=== PATIENT | male | born 1960 | race Caucasian/White ===

== ENCOUNTER 2018-02-16 08:58 | Day surgery (SDC) | payer OTHER ==
[2018-02-16] MEDS ORDERED: LIDOCAINE HCL 1%, 10 MG/ML (20ML VIAL) ONE (11:02)
[2018-02-16 12:46] VITALS: BP 119/68; PULSE 73; TEMP 99.2
--- NOTE | 2018-02-16 18:23 | PROC ---
Bone Marrow Aspiration/Biopsy - Consent Risks and Benefits Explained: Yes Consent on Chart: Yes - Procedure Location: Right Iliac Crest Anesthesia: 1% Lidocaine Sterile Technique: Yes Specimen: Obtained Position: Other (left lateral) Patient tolerated procedure: Well with minimal pain Sterile Dressing Applied: Yes Remarks: Indication --mantle cell lymphoma
--- NOTE | 2018-02-16 23:30 | HP ---
Satellite H - Chief Complaint Chief Complaint: 57 y/o patinet with mantle cell lymphoma, here for elective bone marow biopsy. No fever/chills/cough or other symptoms History Source: Patient Limitations to Obtaining History: No Limitations - Past Medical History Allergies/Adverse Reactions: Allergies Allergy/AdvReac Type Severity Reaction Status Date / Time No Known Drug Allergies Allergy Verified 04/30/14 15:04 - Current Medications Current Medications: Home Medications Medication Instructions Recorded Aspirin [ASA -] 81 mg PO DAILY 04/30/14 Cholecalciferol (Vitamin D3) 1,000 unit PO DAILY 04/30/14 [Vitamin D3] Dapagliflozin Propanediol [Farxiga] 5 mg PO DAILY 04/30/14 Fosinopril Sodium 20 mg PO DAILY 04/30/14 Glyburide 5 mg PO BID 04/30/14 Saxagliptin HCl/Metformin HCl 1 tab PO BID 04/30/14 [Kombiglyze Xr 2.5-1,000 mg Tab] Testosterone [Testim] 5 gm TD DAILY 04/30/14 Oxycodone HCl/Acetaminophen 1 - 2 tab PO Q6H #60 tab 05/07/14 [Percocet 5-325 mg Tablet -] Satellite Physical Exam - Physical Examination Vital Signs: Vital Signs Period Temp Pulse Resp BP Sys/Myles Pulse Ox Last 24 Hr 98.1 F-99.2 F 73-79 16-18 119-148/68-82 General Appearance: Well Developed, Alert & Oriented x3 Lung: Clear to auscultation Heart: Regular rate & rhythm, Normal S1, Normal S2 Abdomen: Soft, No tenderness, Normal bowel sounds Extremities: No edema Neurological: Intact Satellite Impression/Plan - Impression/Plan Impression: 57 y/o patient with mantle cell lymphoma here for completing staging work up
--- NOTE | 2018-02-26 18:29 | PATH ---
Surgical Pathology Report Patient Name: TIAN CHAVARRIA Med. Rec. #: [id number] /Age/Gender: 1960 (Age: 57) / M Account: [id number] Location: [facility] MED/SURG Taken: 02/16/2018 Received: 02/16/2018 Reported: 02/26/2018 Physicians: Wendy Lechuga M.D. Specimen(s) Received A: BONE MARROW BIOPSY B: BONE MARROW CLOT C: BONE MARROW ASPIRATION SMEARS D: BONE MARROW BLOOD Clinical History Rule out Mantle cell lymphoma involvement Final Diagnosis A, B, C. BONE MARROW, CORE, CLOT, AND ASPIRATE, BIOPSY: INVOLVEMENT BY MANTLE CELL LYMPHOMA (LIMITED SPECIMEN FOR EVALUATION OF EXTENT). NORMOCELLULAR MARROW (40-50%) WITH TRILINEAGE HEMATOPOIESIS. SUBOPTIMAL ASPIRATE AND PARTICLE CLOT. Comment: Flow cytometric analysis of the bone marrow showed low-level involvement by a CD5+ B-cell lymphoproliferative disorder, consistent with mantle cell lymphoma. They represented approximately 0.9% of WBCs. FISH studies were positive for low-level CCND1-IGH translocation. There is involvement of the bone marrow by mantle cell lymphoma, however extent involvement is difficult to assess due to a small core biopsy and inadequate aspirate and particle clot. A lymphoid aggregate initially identified was no longer present on deeper sectioning for IHC evaluation. Please correlate with clinical and other laboratory findings. This case was sent to Dr. Joe Fam from [facility] [place], [place] ([id number]) the diagnosis above reflects his opinion. C. COMPREHENSIVE FLOW PANEL performed and interpreted at [facility] [place], [place] ([id number]) shows the following: INTERPRETATION: LOW LEVEL INVOLVEMENT BY CD5+ B-CELL LYMPHOPROLIFERATIVE DISORDER. Hematologic FISH report performed and interpreted at [facility] [place], [place] ([id number]) shows the following: INTERPRETATION: Positive for the CCND1/IGH t(11;14) translocation. Correlation with pending cytogenetics ([id number]) is recommended. See [facility] report ([id number], [id number], and [id number]) for additional details. Electronically Signed Latanya Cain M.D. Addendum Reported: 03/01/2018 Addendum Diagnosis CYTOGENETIC KARYOTYPE ANALYSIS performed and interpreted at [facility], [facility] ([id number]) shows the following: RESULTS: 46,XY [20] DIAGNOSITIC INTERPRETATION: Normal Karyotype Within the limits of the cytogenetic methods, the chromosomes had normal G-banding patterns with no evidence of an acquired clonal numerical or structural abnormality. This normal result does not rule out a neoplasm. Subtle rearrangements or the presence of an aberrant clone in a low proportion of cells cannot be ruled out. Correlation with other clinical and hematologic data is suggested. Analysis was performed on cells from an unstimulated tissue culture and a tissue culture that was stimulated with lymphoid mitogens. See [facility] report for additional details ([id number]) Latanya Cain M.D. Gross Description A. Received in formalin, labeled with the patient's name and indicated on the requisition to be bone marrow biopsy, is a 0.4 cm in length x 0.2 cm in diameter fernandez, cylindrical portion of bone with attached blood clot. The specimen is entirely submitted in one cassette, following decalcification. B. Received in formalin, labeled with the patient's name and indicated on the requisition to be bone marrow clot, is a 2.3 x 1.5 x 0.3 cm red-brown blood clot. The specimen is submitted in toto in one cassette. C. Received are 10 bone marrow aspiration smear slides. D. Received are 2 green top tubes and 1 lavender top tube of blood which is sent [facility]. 02/19/2018 saudi02/19/2018
== END 2018-02-16 14:03 | disposition home or self-care (01) ==
LOC: J7W 08:58 → JONCNONCHE 08:58
PROVIDERS: ATTEND Internal Medicine Hematology & Oncology
PROC: 07DR3ZX Extraction of Iliac Bone Marrow, Percutaneous Approach, Diagnostic (ICD-10-PCS; principal; 2018-02-16)
DX: C83.10 Mantle cell lymphoma, unspecified site (principal)
CPT/HCPCS: 88300-TC; 88305-TC; 88311-TC; 88313-TC

== ENCOUNTER 2018-02-26 09:20 | Day surgery (SDC) | payer OTHER ==
[2018-02-22 17:49] VITALS: BMI 27.3
[2018-02-26 10:02] LABS: BASO % 0.6 % (0-2.0); EOS % 5.6 % (0-4.5); HEMATOCRIT 45.6 % (35.4-49); HEMOGLOBIN 15.5 GM/dL (11.7-16.9); MCH 30.9 pg (25.7-33.7); MEAN CELL VOLUME 90.9 fl (80-96); MEAN PLT VOLUME 7.3 fl (7.5-11.1); MONO % 6.4 % (3.8-10.2); NEUT % 55.4 % (42.8-82.8); PLATELET COUNT 143 K/MM3 (134-434); RBC 5.02 M/mm3 (4.00-5.60); RDW 13.6 % (11.9-15.9); WHITE BLOOD COUNT 5.9 K/mm3 (4.0-10.0)
[2018-02-26 10:27] LABS: INR 0.93 (0.82-1.09); PROTHROMBIN TIME (PATIENT) 10.5 SEC (9.7-13.0)
[2018-02-26 10:54] VITALS: TEMP 98.4
[2018-02-26 16:07] VITALS: BP 129/79; PULSE 73
== END 2018-02-26 14:45 | disposition home or self-care (01) ==
LOC: JRADIR 09:20
PROVIDERS: ATTEND Internal Medicine Hematology & Oncology
PROC: 02HV33Z Insertion of Infusion Device into Superior Vena Cava, Percutaneous Approach (ICD-10-PCS; principal; 2018-02-26)
PROC: B518ZZA Fluoroscopy of Superior Vena Cava, Guidance (ICD-10-PCS; 2018-02-26)
DX: C83.10 Mantle cell lymphoma, unspecified site (principal)
CPT/HCPCS: 36561; C1788; 36415; 77001-TC-FY; 85025; 85610

== ENCOUNTER 2018-02-28 07:38 | Day surgery (SDC) | payer OTHER ==
[2018-02-28] MEDS ORDERED: SODIUM CHLORIDE 250 ML IV ONE ×4 (08:00→12:10)
[2018-02-28] MEDS ORDERED: PALONOSETRON HCL 0.25 MG/5 ML VIAL IVPUSH ONE (08:30)
[2018-02-28] MEDS ORDERED: DEXAMETHASONE INJECTION 20 MG, DIPHENHYDRAMINE 50 MG in SODIUM CHLORIDE 100 ML IVPB ONE (08:30)
[2018-02-28] MEDS ORDERED: ACETAMINOPHEN 325 MG TABLET (FP) PO ONE (08:30)
[2018-02-28] MEDS ORDERED: DEXAMETHASONE INJECTION 10 MG in SODIUM CHLORIDE 50 ML IVPB ONE (08:30)
[2018-02-28] MEDS ORDERED: SODIUM CHLORIDE IVPB ONE ×3 (09:00→12:00)
[2018-02-28] MEDS ORDERED: BENDAMUSTINE HCL IVPB ONE ×2 (09:00→12:00)
[2018-02-28] MEDS ORDERED: RITUXIMAB IVPB ONE (09:00)
[2018-02-28] MEDS ORDERED: SODIUM CHLORIDE 500 ML IV ONE ×3 (10:00→23:00)
[2018-02-28] MEDS ORDERED: PORTA CATH FLUSH 10 ML IVPUSH ONE ×2 (11:37→17:15)
[2018-02-28 17:13] VITALS: TEMP 98.2
[2018-02-28 17:16] VITALS: BP 129/89; PULSE 71
== END 2018-02-28 17:12 | disposition home or self-care (01) ==
LOC: JONCCHEMO 07:38 → J7W 08:52 → JONCCHEMO 17:12
PROVIDERS: ATTEND Internal Medicine Hematology & Oncology
DX: Z51.11 Encounter for antineoplastic chemotherapy (principal); C83.10 Mantle cell lymphoma, unspecified site
CPT/HCPCS: 96361; 96367; 96375; 96411; 96413; 96415; 96417; J1100; J2469; J7030; J9034; J9310

== ENCOUNTER 2018-03-01 06:43 | Day surgery (SDC) | payer OTHER ==
[2018-02-27 22:34] LABS: URIC ACID 3.9 mg/dL (2.6-7.2)
[2018-03-01] MEDS ORDERED: SODIUM CHLORIDE 250 ML IV ONE ×2 (08:00→09:10)
[2018-03-01] MEDS ORDERED: DEXAMETHASONE INJECTION 10 MG in SODIUM CHLORIDE 50 ML IVPB ONE (08:30)
[2018-03-01] MEDS ORDERED: DEXAMETHASONE INJECTION 20 MG in SODIUM CHLORIDE 50 ML IVPB ONE (08:30)
[2018-03-01] MEDS ORDERED: BENDAMUSTINE HCL IVPB ONE (09:00)
[2018-03-01] MEDS ORDERED: SODIUM CHLORIDE IVPB ONE (09:00)
[2018-03-01] MEDS ORDERED: PORTA CATH FLUSH 10 ML IVPUSH ONE (09:37)
[2018-03-01 09:38] VITALS: TEMP 97.9
[2018-03-01] MEDS ORDERED: DIPHENHYDRAMINE 25 MG, DEXAMETHASONE INJECTION 20 MG in SODIUM CHLORIDE 100 ML IVPB ONE (11:00)
[2018-03-01 15:29] VITALS: BP 110/72; PULSE 80
== END 2018-03-01 14:15 | disposition home or self-care (01) ==
LOC: JONCCHEMO 06:43 → J7W 08:48 → JONCCHEMO 14:15
PROVIDERS: ATTEND Internal Medicine Hematology & Oncology
DX: Z51.11 Encounter for antineoplastic chemotherapy (principal); C83.10 Mantle cell lymphoma, unspecified site
CPT/HCPCS: 36415; 83615; 84550; 96361; 96367; 96375; 96413; J1100

== ENCOUNTER 2018-03-02 07:34 | Day surgery (SDC) | payer OTHER ==
[2018-03-02] MEDS ORDERED: PEGFILGRASTIM 6 MG/0.6 ML DISP.SYRIN SQ ONE (08:00)
[2018-03-02 17:15] VITALS: BP 120/76; PULSE 77; TEMP 97.9
== END 2018-03-02 11:05 | disposition home or self-care (01) ==
LOC: JONCCHEMO 07:34 → J7W 10:54 → JONCCHEMO 11:05
PROVIDERS: ATTEND Internal Medicine Hematology & Oncology
PROC: 3E013GC Introduction of Other Therapeutic Substance into Subcutaneous Tissue, Percutaneous Approach (ICD-10-PCS; principal; 2018-03-02)
DX: C83.10 Mantle cell lymphoma, unspecified site (principal); Z76.89 Persons encountering health services in other specified circumstances
CPT/HCPCS: 96372; J2505

== ENCOUNTER 2018-03-27 07:34 | Day surgery (SDC) | payer OTHER ==
[2018-03-27] MEDS ORDERED: SODIUM CHLORIDE 500 ML IV ONE (09:00)
[2018-03-27 09:10] LABS: BASO % 1.1 % (0-2.0); EOS % 3.3 % (0-4.5); HEMATOCRIT 44.9 % (35.4-49); HEMOGLOBIN 15.1 GM/dL (11.7-16.9); LYMPH % 11.7 % (8-40); MCH 31.5 pg (25.7-33.7); MCHC 33.6 g/dl (32.0-35.9); MEAN CELL VOLUME 93.7 fl (80-96); MEAN PLT VOLUME 8.2 fl (7.5-11.1); MONO % 8.3 % (3.8-10.2); NEUT % 75.6 % (42.8-82.8); PLATELET COUNT 162 K/MM3 (134-434); RBC 4.79 M/mm3 (4.00-5.60); RDW 15.1 % (11.9-15.9); WHITE BLOOD COUNT 6.5 K/mm3 (4.0-10.0)
[2018-03-27 09:34] LABS: ALBUMIN 3.7 g/dl (3.4-5.0); ALK PHOS 58 U/L (45-117); ANION GAP 9 (8-16); BILIRUBIN,DIRECT 0.3 mg/dL (0.0-0.2); BILIRUBIN,TOTAL 0.4 mg/dL (0.2-1.0); BLOOD UREA NITROGEN 23 mg/dL (7-18); CALCIUM 9.1 mg/dL (8.5-10.1); CHLORIDE 104 mmol/L (98-107); CO2 25 mmol/L (21-32); CREATININE 0.9 mg/dL (0.7-1.3); MAGNESIUM 2.2 mg/dL (1.8-2.4); POTASSIUM 4.6 mmol/L (3.5-5.1); SGOT/AST 16 U/L (15-37); SGPT/ALT 33 U/L (12-78); SODIUM 138 mmol/L (136-145)
[2018-03-27 09:36] LABS: GLUCOSE,RANDOM 349 mg/dL (74-106)
[2018-03-27 09:52] LABS: LDH 162 U/L (87-241); URIC ACID 6.3 mg/dL (2.6-7.2)
[2018-03-27] MEDS ORDERED: PALONOSETRON HCL 0.25 MG/5 ML VIAL IVPUSH ONE (10:00)
[2018-03-27] MEDS ORDERED: DEXAMETHASONE INJECTION 20 MG, DIPHENHYDRAMINE 50 MG in SODIUM CHLORIDE 100 ML IVPB ONE (10:00)
[2018-03-27] MEDS ORDERED: ACETAMINOPHEN 325 MG TABLET (FP) PO ONE (10:00)
[2018-03-27] MEDS ORDERED: RITUXIMAB IVPB ONE (10:30)
[2018-03-27] MEDS ORDERED: SODIUM CHLORIDE IVPB ONE ×2 (10:30→14:00)
[2018-03-27] MEDS ORDERED: SODIUM CHLORIDE 250 ML IV SCH (11:00)
[2018-03-27] MEDS ORDERED: ALLOPURINOL 300 MG TABLET (FP) PO SCH (11:00)
[2018-03-27] MEDS ORDERED: CYCLOPHOSPHAMIDE IVPB ONE (14:00)
[2018-03-27] MEDS ORDERED: DOXORUBICIN HCL IV ONE (14:30)
[2018-03-27] MEDS ORDERED: SODIUM CHLORIDE IV ONE (14:30)
[2018-03-27] MEDS ORDERED: vinCRIStine SULFATE 2 MG in SODIUM CHLORIDE 50 ML IVPB ONE (15:00)
[2018-03-27] MEDS ORDERED: SODIUM CHLORIDE 500 ML IV SCH (15:30)
[2018-03-27] MEDS ORDERED: PORTA CATH FLUSH 10 ML IVPUSH ONE (16:31)
[2018-03-27 16:40] VITALS: TEMP 98.1
[2018-03-27 19:07] VITALS: BP 115/73; PULSE 79
== END 2018-03-27 19:06 | disposition home or self-care (01) ==
LOC: JONCCHEMO 07:34 → J7W 10:06 → JONCCHEMO 19:06
PROVIDERS: ATTEND Internal Medicine Hematology & Oncology
DX: Z51.11 Encounter for antineoplastic chemotherapy (principal); C83.10 Mantle cell lymphoma, unspecified site
CPT/HCPCS: 36415; 80053; 80076; 82962; 83615; 83735; 84550; 85025; 96361; 96367; 96375; 96411; 96413; 96415; 96417; J1100; J2469; J7030; J9070; J9310; J9370

== ENCOUNTER 2018-03-28 07:31 | Day surgery (SDC) | payer OTHER ==
[2018-03-28] MEDS ORDERED: SODIUM CHLORIDE 1,000 ML IV SCH (09:00)
[2018-03-28] MEDS ORDERED: PEGFILGRASTIM 6 MG/0.6 ML DISP.SYRIN SQ ONE (10:00)
[2018-03-28 13:36] VITALS: BP 122/69; PULSE 89
[2018-03-28] MEDS ORDERED: PORTA CATH FLUSH 10 ML IVPUSH ONE (13:36)
== END 2018-03-28 11:00 | disposition home or self-care (01) ==
LOC: JONCCHEMO 07:31 → J7W 08:19 → JONCCHEMO 11:00
PROVIDERS: ATTEND Internal Medicine Hematology & Oncology
PROC: 3E013GC Introduction of Other Therapeutic Substance into Subcutaneous Tissue, Percutaneous Approach (ICD-10-PCS; principal; 2018-03-28)
PROC: 3E04329 Introduction of Other Anti-infective into Central Vein, Percutaneous Approach (ICD-10-PCS; 2018-03-28)
DX: C83.10 Mantle cell lymphoma, unspecified site (principal); Z76.89 Persons encountering health services in other specified circumstances
CPT/HCPCS: 96360; 96361; 96372; J2505; J7030